=== PATIENT | female | born 1995 | race African-American/Black ===

== ENCOUNTER 2019-11-23 08:04 | Day surgery (SDC) | payer BC, OTHER ==
[2019-11-21 09:00] VITALS: BMI 44.4
--- OUTSIDE RECORDS SUMMARY | 2019-11-23 08:08 | XMS ---
:1995 [facility] Support Name Relationship Address Phone UE, UNEMPLOYED Unavailable Unavailable Unavailable UE Unavailable Unavailable Unavailable TONIO DSOUZA MOTHER [address] [place] [id number] [place] [address] Re-disclosure Warning The records that you are about to access may contain information from federally- assisted alcohol or drug abuse programs. If such information is present, then the following federally mandated warning applies: This information has been disclosed to you from records protected by federal confidentiality rules (42 CFR part 2). The federal rules prohibit you from making any further disclosure of this information unless further disclosure is expressly permitted by the written consent of the person to whom it pertains or as otherwise permitted by 42 CFR part 2. A general authorization for the release of medical or other information is NOT sufficient for this purpose. The Federal rules restrict any use of the information to criminally investigate or prosecute any alcohol or drug abuse patient.The records that you are about to access may contain highly sensitive health information, the redisclosure of which is protected by Article 27-F of the [facility] Public Health law. If you continue you may haveaccess to information: Regarding HIV / AIDS; Provided by facilities licensed or operated by the [facility] Office of Mental Health; or Provided by the [facility] Office for People With Developmental Disabilities. If such information is present, then the following [facility] mandated warning applies: This information has been disclosed to you from confidential records which are protected by state law. State law prohibits you from making any further disclosure of this information without the specific written consent of the person to whom it pertains, or as otherwise permitted by law. Any unauthorized further disclosure in violation of state law may result in a fine or shelter sentence or both. A general authorization for the release of medical or other information is NOT sufficient authorization for further disclosure. Insurance Providers Payer name Policy type / Policy ID Covered Covered democrat's Policy Plan Coverage type democrat ID relationship to Cole Information cole [facility] [id number] SP [id number] I CBP [id number] SP [id number] OUTPT 2 Results ID Date Data Source [id number] 11/19/2019 02:00:00 PM EDT [facility] Name Value Range Interpretation Description Data Sup porting Code Source(s) Document(s ) SARS [facility] coronavirus 2 RNA This lab was ordered by [facility] and reported by [facility]. ID Date Data Source [id number] 10/05/2019 07:36:00 PM EDT [facility] Name Value Range Interpretation Description Data Sup porting Code Source(s) Document(s ) SARS [facility] Coronavirus 2 RNA Presence Respiratory Specimen JOHNATHON Probe Detection This lab was ordered by [facility] and rep orted by [facility]. ID Date Data Source [id number] 10/03/2019 01:59:00 PM EDT [facility] Name Value Range Interpretation Description Data Sup porting Code Source(s) Document(s ) SARS [facility] Coronavirus 2 RNA Presence Respiratory Specimen JOHNATHON Probe Detection This lab was ordered by [facility] and rep orted by [facility]. ID Date Data Source [id number] 06/15/2019 12:00:00 AM EDT [facility] Name Value Range Interpretation Code Description Data Lisa rce(s) Supporting Document(s ) 2019-nCoV [facility] RNA XXX JOHNATHON+probe- Imp This lab was ordered by [facility] and reported by [employer] Procedure
[2019-11-23] MEDS ORDERED: PROPOFOL 20 ML ONE ×2 (08:28)
[2019-11-23] MEDS ORDERED: LIDOCAINE HCL/PF 2% SDV 5ML VIAL ONE (08:28)
[2019-11-23] MEDS ORDERED: GLYCOPYRROLATE 0.2 MG/1 ML VIAL ONE (08:28)
[2019-11-23] MEDS ORDERED: MIDAZOLAM HCL 2 MG/2 ML SINGLE DOSE VIAL ONE ×2 (08:28)
[2019-11-23 18:23] VITALS: TEMP 98.4
[2019-11-23 18:27] VITALS: BP 110/70; PULSE 90
--- NOTE | 2019-11-25 19:27 | PATH ---
Surgical Pathology Report Patient Name: CHASE BINGHAM Med. Rec. #: [id number] /Age/Gender: 1995 (Age: 24) / F Account: [id number] Location: [facility] AM[facility] Taken: 11/23/2019 Received: 11/23/2019 Reported: 11/25/2019 Physicians: Giorgi Yao M.D. Specimen(s) Received A: SECOND PORTION DUODENUM B: ANTRUM Clinical History Preop bariatric Postoperative diagnosis: Mild gastritis Final Diagnosis A. DUODENUM, SECOND PORTION, BIOPSY: DUODENAL MUCOSA WITH SMALL LYMPHOID AGGREGATE. B. GASTRIC ANTRUM, BIOPSY: GASTRIC ANTRAL MUCOSA WITH MILD CHRONIC GASTRITIS. IMMUNOHISTOCHEMICAL STAIN FOR H. PYLORI IS NEGATIVE. Positive and negative controls (internal if applicable) show appropriate results. Electronically Signed Kaye Valadez M.D. Gross Description A. Received in formalin, labeled "second portion duodenum" are 2 napoles, irregular portions of soft tissue measuring 0.4 cm. in greatest dimension. The specimens are submitted in toto in one cassette. B. Received in formalin, labeled "gastric antrum" are 2 napoles, irregular portions of soft tissue measuring 0.3 cm. in greatest dimension. The specimens are submitted in toto in one cassette. MLSZ/11/24/2019 sanml/11/24/2019
== END 2019-11-23 10:00 | disposition home or self-care (01) ==
LOC: FASU 08:04
PROVIDERS: ATTEND Internal Medicine Gastroenterology
PROC: 0DB68ZX Excision of Stomach, Via Natural or Artificial Opening Endoscopic, Diagnostic (ICD-10-PCS; 2019-11-23)
PROC: 0DB98ZX Excision of Duodenum, Via Natural or Artificial Opening Endoscopic, Diagnostic (ICD-10-PCS; principal; 2019-11-23 08:54)
DX: Z01.818 Encounter for other preprocedural examination (principal); K29.50 Unspecified chronic gastritis without bleeding; K21.9 Gastro-esophageal reflux disease without esophagitis
CPT/HCPCS: 84703; 88305-TC; 88342-TC